=== PATIENT | female | born 1995 | race American Indian/Alaskan Native ===

== ENCOUNTER 2020-06-17 07:47 | Emergency (ER) | payer SELFPAY ==
--- NOTE | 2020-06-17 08:41 | Emergency Department Report ---
ED Eye Problem HPI - General Chief complaint: Eye Problems Stated complaint: LFT EYE PINK Time Seen by Provider: 06/17/20 08:14 Source: patient Mode of arrival: Ambulatory Limitations: No Limitations - History of Present Illness Initial comments: Patient is a 24-year-old female presents emergency room with complaints of left eye redness and irritation that began 3 days ago. She has associated eye drainage, watering, eyelash matting, crusting. She denies anything getting into the eye. She denies any contact lens use. She denies any vision changes. She states that her boyfriend had similar symptoms and it resolved after using antibiotic eyedrops. She denies any past medical history. No allergies to medications. - Related Data Previous Rx's Medication Instructions Recorded Last Taken Type Polymyxin B Sulf/Trimethoprim 1 drop OS Q3HR 7 Days #1 bottle 06/17/20 Unknown Rx [Polytrim Eye Drops [id number]/0.1%] Allergies Allergy/AdvReac Type Severity Reaction Status Date / Time No Known Allergies Allergy Unverified 06/17/20 07:52 ED Review of Systems ROS: Stated complaint: LFT EYE PINK Other details as noted in HPI Comment: All other systems reviewed and negative ED Past Medical Hx - Past Medical History Previous Medical History?: No - Surgical History Past Surgical History?: No - Medications Home Medications: Home Medications Medication Instructions Recorded Confirmed Last Taken Type Polymyxin B Sulf/Trimethoprim 1 drop OS Q3HR 7 Days #1 bottle 06/17/20 Unknown Rx [Polytrim Eye Drops [id number]/0.1%] ED Physical Exam - General Limitations: No Limitations General appearance: alert, in no apparent distress - Head Head exam: Present: atraumatic, normocephalic - Eye Eye exam: Present: PERRL, EOMI, conjunctival injection (left with mucus crusting in the corners of the left eye, no eyelid edema, no signs of visualized foreign body). Absent: periorbital swelling, periorbital tenderness Pupils: Present: normal accommodation - ENT ENT exam: Present: mucous membranes moist - Respiratory Respiratory exam: Absent: respiratory distress, accessory muscle use - Neurological Exam Neurological exam: Present: alert, oriented X3 - Psychiatric Psychiatric exam: Present: normal affect, normal mood - Skin Skin exam: Present: warm, dry, intact ED Course Vital Signs 09/12/20 09/12/20 07:53 09:09 Temperature 97.9 F Pulse Rate 109 H 109 H Respiratory 18 Rate Blood Pressure 119/77 116/75 O2 Sat by Pulse 93 98 Oximetry ED Medical Decision Making - Lab Data Vital Signs 06/17/20 06/17/20 07:53 09:09 Temperature 97.9 F Pulse Rate 109 H 109 H Respiratory 18 Rate Blood Pressure 119/77 116/75 O2 Sat by Pulse 93 98 Oximetry - Medical Decision Making Patient is a 24-year-old female presents emergency room with complaints of left eye redness and irritation that began 3 days ago. She has associated eye drain age, watering, eyelash matting, crusting. She denies anything getting into the eye. She denies any contact lens use. She denies any vision changes. She states that her boyfriend had similar symptoms and it resolved after using antibiotic eyedrops. She denies any past medical history. No allergies to medications. I believe triage vitals for oxygen saturation are incorrect due to machine malfunction, on repeat of patients vitals in exam room oxygen saturation is normal. on exam: left with mucus crusting in the corners of the left eye, no eyelid edema, no signs of visualized foreign body, EOMI, PERRLA. Examination appears consistent with conjunctivitis. She has no signs of hordeolum, blepharitis, dacryocystitis, preseptal or orbital cellulitis. Patient given prescription for antibiotic eyedrops. advised pt Please use medication as prescribed. Wash your hands frequently. avoid rubbing the eye. Wash your bed sheets and pillow sheets. This is contagious. Follow-up with your primary care doctor. Follow-up with a eye doctor if symptoms are not improving. Return to emergency room for any new or worsening symptoms. Critical care attestation.: If time is entered above; I have spent that time in minutes in the direct care of this critically ill patient, excluding procedure time. ED Disposition Clinical Impression: Conjunctivitis Qualifiers: Conjunctivitis type: acute Acute conjunctivitis type: unspecified Laterality: left Qualified Code(s): H10.32 - Unspecified acute conjunctivitis, left eye Disposition: DC-01 TO HOME OR SELFCARE Is pt being admited?: No Does the pt Need Aspirin: No Condition: Stable Instructions: Conjunctivitis (ED) Additional Instructions: Please use medication as prescribed. Wash your hands frequently. avoid rubbing the eye. Wash your bed sheets and pillow sheets. This is contagious. Follow-up with your primary care doctor. Follow-up with a eye doctor if symptoms are not improving. Return to emergency room for any new or worsening symptoms. Prescriptions: Polymyxin B Sulf/Trimethoprim [Polytrim Eye Drops [id number]/0.1%] 1 drop OS Q3HR 7 Days #1 bottle Referrals: PRIMARY MD GERALDINE [Primary Care Provider] - 3-5 Days ANJUM DEXTER MD [Staff Physician] - 3-5 Days [facility] [Provider Group] - 3-5 Days [facility] [Provider Group] - 3-5 Days Time of Disposition: 08:39 Print Language: NAURUAN
[2020-06-17 09:31] VITALS: BP 116/75
== END 2020-06-17 09:09 | disposition home or self-care (01) ==
LOC: ED 07:47
DX: H10.32 Unspecified acute conjunctivitis, left eye (principal); Z79.899 Other long term (current) drug therapy
CPT/HCPCS: 99281